=== PATIENT | male | born 1970 | race Caucasian/White ===

== ENCOUNTER 2017-09-10 16:39 | Emergency (ER) | payer OTHER ==
[~2017-09-10] VITALS: Ht 175.3 cm; Wt 95.3 kg
[2017-09-10 16:56] VITALS: BP 108/61
[2017-09-10 17:06] VITALS: BP 103/74
--- NOTE | 2017-09-10 17:08 | ER.PDOC ---
General Chief Complaint: General Complaint Stated Complaint: GENEREAL COMPLAINT TRAVEL OUT OF US: No Time seen by MD: 17:05 Source: patient Exam Limitations: no limitations History of Present Illness Initial Comments Ran out of Levothyroxine, wants it refilled Associated Symptoms: denies symptoms Past Medical History Medical History: thyroid disease Surgical History: no surgical history Social History Smoking: non-smoker Alcohol Use: none Drug Use: none Review of Systems Constitutional: no symptoms reported EENTM: no symptoms reported Respiratory: no symptoms reported Cardiovascular: no symptoms reported Gastrointestinal: no symptoms reported All Other Systems: Reviewed and Negative Physical Exam General Appearance: No Apparent Distress, WD/WN EENT: eyes nml inspection Neck: Non-Tender, Full Range of Motion, Supple, Normal Inspection Respiratory: chest non-tender, lungs clear, normal breath sounds, no respiratory distress CVS: reg rate & rhythm, no murmur, no gallop, pulses nml Gastrointestinal: Normal Bowel Sounds, No Organomegaly, No Pulsatile Mass, Non Tender Back: Normal Inspection Extremities: Normal Range of Motion 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
[2017-09-10 17:18] VITALS: BP 103/74
== END 2017-09-10 17:15 | disposition home or self-care (01) ==
LOC: ER 16:39
DX: E03.9 Hypothyroidism, unspecified (principal)
CPT/HCPCS: 99283